=== PATIENT | female | born 1990 | race Caucasian/White ===

== ENCOUNTER 2016-07-08 18:41 | Emergency (ER) | payer OTHER ==
[~2016-07-08] VITALS: Ht 167.6 cm; Wt 74.5 kg
[~2016-07-08 18:41] MED LIST: NO CURRENT MEDS
[2016-07-08 18:49] VITALS: Ht 167.6 cm; Wt 74.5 kg
[2016-07-08] MEDS ORDERED: PRED20TA PO (19:27)
[2016-07-08] MEDS ORDERED: CETI10CA PO (19:27)
--- NOTE | 2016-07-08 19:30 | ERD ---
ER Documentation Chief Complaint Date/Time DATE: 07/08/16 TIME: 19:28 Chief Complaint allergic rxn-possible to abx administered; symptoms x 4 days HPI This 25-year-old female presents with a rash for the last 4 days. Is itchy and on her trunk and extremities. History is significant for taking antibiotics for a URI finishing 2 weeks ago. She also some dental work approximately 4 days ago but she felt like the rash was starting on the day prior to the dental work. She denies any fevers, vomiting, shortness breath, sore throat, additional symptoms. ROS All systems reviewed and are negative except as per history of present illness. Medications Home Meds Active Scripts Cetirizine Hcl* (Zyrtec*) 10 Mg Capsule, 10 MG PO DAILY, #10 TAB.CHEW Prov:JACQUELINE MAXWELL MD 07/08/16 Prednisone* (Prednisone*) 20 Mg Tab, 40 MG PO DAILY for 4 Days, TAB Prov:JACQUELINE MAXWELL MD 07/08/16 Reported Medications [No Current Meds] No Conflict Check 12/08/09 Allergies Allergies: Coded Allergies: No Known Drug Allergies (Verified Allergy, Mild, 01/06/14) PMhx/Soc History of Surgery: No Anesthesia Reaction: No Hx Neurological Disorder: No Hx Respiratory Disorders: No Hx Cardiac Disorders: No Hx Psychiatric Problems: No Hx Miscellaneous Medical Probl: No Hx Alcohol Use: No Hx Substance Use: No Hx Tobacco Use: No Smoking Status: Never smoker Physical Exam Vitals Vital Signs Date Time Temp Pulse Resp B/P Pulse Ox O2 Delivery O2 Flow Rate FiO2 07/08/16 18:49 97.7 68 18 143/72 100 Physical Exam Const: [] Alert, [id number] per Head: Atraumatic Eyes: Normal Conjunctiva ENT: Normal External Ears, Nose and Mouth. Neck: Full range of motion..~ No meningismus. Resp: Clear to auscultation bilaterally Cardio: Regular rate and rhythm, no murmurs Abd: Soft, non tender, non distended. Normal bowel sounds Skin: No petechiae or purpura. There is a scattered diffuse 1 mm maculopapular rash on the extremities and trunk. There is a blanching and there is no vesicles, warmth, induration or streaking. Back: No midline or flank tenderness Ext: No cyanosis, or edema Neur: Awake and alert Psych: Normal Mood and Affect Procedures/MDM Patient presents with a blanching maculopapular rash for last 4 days. Has a clinical appearance of a viral exanthem or possible unspecified allergic reaction. She will treated with a course of prednisone and Zyrtec and further observation. There is no evidence of endocarditis, life-threatening rashes, purpura, emergent contagious diseases. Patient should return for new or worsening symptoms or with primary care doctor. The patient was stable with no new complaints during the ER course. Clinically, there is no current evidence to suggest meningitis, sepsis, acute abdomen, pneumonia, acute coronary syndrome , pulmonary embolism, or any other emergent condition appearing to require further evaluation or hospitalization. The patient should certainly return for any new or worsening symptoms per the aftercare instructions. They should otherwise follow-up with her primary care doctor for reevaluation this week. Departure Diagnosis: Primary Impression: Rash Condition: Stable Patient Instructions: Dermatitis, Non-Specific Additional Instructions: Suspect viral rash or allergic reaction. Recheck for new or worsening symptoms with primary care doctor. JACQUELINE MAXWELL MD Jul 08, 2016 19:30
== END 2016-07-08 20:13 | disposition home or self-care (01) ==
LOC: FTE 18:41
DX: R21 Rash and other nonspecific skin eruption (principal)
CPT/HCPCS: 99283

== ENCOUNTER 2016-07-25 19:16 | Emergency (ER) | payer SELFPAY ==
[~2016-07-25 19:16] MED LIST changes: +CETI10CA PO; +PRED20TA PO
[2016-07-26] MEDS ORDERED: IBUP800T25 PO (08:39)
== END 2016-07-25 19:48 | disposition left against medical advice (07) ==
LOC: E/R 19:16
DX: Z53.21 Procedure and treatment not carried out due to patient leaving prior to being seen by health care provider (principal)

== ENCOUNTER 2016-07-26 07:16 | Emergency (ER) | payer OTHER ==
[~2016-07-26] VITALS: Ht 167.6 cm; Wt 76.5 kg
[2016-07-26 07:24] VITALS: Ht 167.6 cm; Wt 76.5 kg
[2016-07-26] MEDS: IBUPROFEN 800 MG TAB PO ONE ×2 (07:42→07:43)
--- NOTE | 2016-07-26 08:18 | RADRPT ---
PROCEDURE: Right foot series CLINICAL INDICATION: Pain TECHNIQUE: AP, lateral and oblique views of the right foot was obtained. Delete the COMPARISON: None. FINDINGS: There is no evidence of acute fractures or dislocations. The bony mineralization is normal. No foc al bony blastic or lytic lesions. No evidence of erosions. The soft tissues are unremarkable. IMPRESSION: Negative right foot series. RPTAT:AAJJ Physician Vaishali Date Time Electronically viewed and signed by Charley Cramer Physician on 07/26/2016 08:18 /
[2016-07-26] MEDS ORDERED: IBUP800T25 PO (08:39)
--- NOTE | 2016-07-26 08:48 | ERD ---
ER Documentation Chief Complaint Date/Time DATE: 07/26/16 TIME: 08:46 Chief Complaint RT FOOT PAIN DENIES INJURY HPI 25-year-old female no past medical history presents with atraumatic right foot pain. The patient describes midfoot and lateral foot pain for approximately 3- 4 days. She states that is worse with walking and improved with rest. It is sharp. She has not taken anything for pain. She denies any fevers or chills. No other bony abnormalities or joint pain. ROS All systems reviewed and are negative except as per history of present illness. Medications Home Meds Active Scripts Ibuprofen* (Motrin*) 800 Mg Tab, 800 MG PO Q6H Y for PAIN AND OR ELEVATED TEMP, #30 TAB Prov:CONCHITA SANTANA MD 07/26/16 Cetirizine Hcl* (Zyrtec*) 10 Mg Capsule, 10 MG PO DAILY, #10 TAB.CHEW Prov:JACQUELINE MAXWELL MD 07/08/16 Prednisone* (Prednisone*) 20 Mg Tab, 40 MG PO DAILY for 4 Days, TAB Prov:JACQUELINE MAXWELL MD 07/08/16 Reported Medications [No Current Meds] No Conflict Check 12/08/09 Allergies Allergies: Coded Allergies: No Known Drug Allergies (Verified Allergy, Mild, 01/06/14) PMhx/Soc History of Surgery: No Anesthesia Reaction: No Hx Neurological Disorder: No Hx Respiratory Disorders: No Hx Cardiac Disorders: No Hx Psychiatric Problems: No Hx Miscellaneous Medical Probl: No Hx Alcohol Use: No Hx Substance Use: No Hx Tobacco Use: No Smoking Status: Never smoker FmHx Family History: No diabetes Physical Exam Vitals Vital Signs Date Time Temp Pulse Resp B/P Pulse Ox O2 Delivery O2 Flow Rate FiO2 07/26/16 07:24 98.5 75 19 113/58 100 Physical Exam General: Well developed, well nourished, no acute distress Head: Normocephalic, atraumatic. Eyes: EOM intact ENT: Moist mucous membranes Neck: Full ROM Respiratory: No respiratory distress Cardiovascular: Good capillary refil Abdominal: Nondistended : Deferred MSK: Right foot with no bony abnormalities, no significant tenderness to the midfoot, no tenderness to the base of the fifth metatarsal. 2+ dorsalis pedis and posterior tibial pulses. No ligamentous instability. Steady gait. No joint effusion. Neurologic: Alert and oriented, moving all extremities, normal speech, steady gait Skin: No rash Psych: Normal mood Results 24 hrs Current Medications Medications (Trade) Dose Ordered Sig/Marciano Route PRN Reason Start Time Stop Time Status Last Admin Dose Admin Ibuprofen (Motrin) 800 mg ONCE ONCE PO 07/26/16 08:00 07/26/16 08:01 DC Procedures/MDM X-ray right foot: I reviewed and interpreted multiple views of the x-ray Bones: No evidence of acute fracture dislocation or subluxation Soft tissue: No evidence of foreign body The patient's clinical exam is most consistent with likely tendinitis of the foot. No evidence of gout, no evidence of septic arthritis, no signs or symptoms concerning for DVT. The patient has full active and passive range of motion and is ambulatory. The patient has no signs of septic arthritis or gonococcal disease. I believe the patient will benefit from rest, ice, compression, nonsteroidal anti-inflammatories. Motrin provided. I provided outpatient referral to podiatry. The patient was advised to return for any worsening symptoms. We discussed follow up with the patient's primary care doctor within 24 to 48 hours as needed. We also discussed return to the emergency room for worsening symptoms or worsening condition. Outpatient referral: Podiatry Discharge Medications: Motrin Departure Diagnosis: Primary Impression: Right foot pain Condition: Stable Patient Instructions: Tendonitis Referrals: [facility]AN[facility] YOU HAVE RECEIVED A MEDICAL SCREENING EXAM AND THE RESULTS INDICATE THAT YOU DO NOT HAVE A CONDITION THAT REQUIRES URGENT TREATMENT IN THE EMERGENCY DEPARTMENT. FURTHER EVALUATION AND TREATMENT OF YOUR CONDITION CAN WAIT UNTIL YOU ARE SEEN IN YOUR DOCTORS OFFICE WITHIN THE NEXT 1-2 DAYS. IT IS YOUR RESPONSIBILITY TO MAKE AN APPOINTMENT FOR FOLOW-UP CARE. IF YOU HAVE A PRIMARY DOCTOR --you should call your primary doctor and schedule an appointment IF YOU DO NOT HAVE A PRIMARY DOCTOR YOU CAN CALL OUR PHYSICIAN REFERRAL HOTLINE AT IF YOU CAN NOT AFFORD TO SEE A PHYSICIAN YOU CAN CHOSE FROM THE FOLLOWING [facility] CL[facility] [address] [facility] [address] [facility] [address] [facility] [address] [facility]. [facility] [address] [facility]. [facility] [address] [facility]. [facility] YOU HAVE RECEIVED A MEDICAL SCREENING EXAM AND THE RESULTS INDICATE THAT YOU DO NOT HAVE A CONDITION THAT REQUIRES URGENT TREATMENT IN THE EMERGENCY DEPARTMENT. FURTHER EVALUATION AND TREATMENT OF YOUR CONDITION CAN WAIT UNTIL YOU ARE SEEN IN YOUR DOCTORS OFFICE WITHIN THE NEXT 1-2 DAYS. IT IS YOUR RESPONSIBILITY TO MAKE AN APPOINTMENT FOR FOLOW-UP CARE. IF YOU HAVE A PRIMARY DOCTOR --you should call your primary doctor and schedule and appointment IF YOU DO NOT HAVE A PRIMARY DOCTOR YOU CAN CALL OUR PHYSICIAN REFERRAL HOTLINE AT . IF YOU CAN NOT AFFORD TO SEE A PHYSICIAN YOU CAN CHOSE FROM THE FOLLOWING [facility] INSTITUTIONS: [facility] [address] [place] [address] [facility] [address] [place], [place] [id number] [place] [address] [address] [place] [address] [facility] 7 a.m.- 11 p.m. Every Day of the Week NO APPOINTMENT OR AUTHORIZATION NEEDED SO [facility] Hours: Mon-Fri 9:00 AM - 5:00 PM Additional Instructions: Call your primary care doctor TOMORROW for an appointment during the next 1 WEEK.Tell the legal secretary that you were referred from this facility.See the doctor sooner or return here if your condition worsens before your appointment time. CONCHITA SANTANA MD Jul 26, 2016 08:48
== END 2016-07-26 09:15 | disposition home or self-care (01) ==
LOC: FTE 07:16
DX: M79.671 Pain in right foot (principal)
CPT/HCPCS: 73630; Z7502

== ENCOUNTER 2017-09-25 23:16 | Emergency (ER) | END 2017-09-26 02:24 | disposition home or self-care (01) ==